=== PATIENT | male | born 1975 | race Caucasian/White ===

== ENCOUNTER → 2018-04-02 | Outpatient (CLI) | payer BC ==
--- NOTE | 2018-04-02 10:28 | Diagnostic Imaging Report ---
MRI of the right shoulder without contrast. History: Shoulder pain. Impingement. Decreased range of motion. Pain not responding to conservative management. Comparison: None Technique: Coronal PD FS, sagital PD FS, and axial PD and PD FS. Findings: Rotator cuff: There is rotator cuff tendinosis with midsubstance degeneration and mild articular sided fraying involving the anterior fibers of the supraspinatus and infraspinatus tendons at the humeral insertion site. This is best seen on coronal image 12 through 14. Additionally, there is subscapularis tendinosis. The teres minor tendon is intact. Osseous acromion complex: There is a type II acromion with mild lateral downsloping. There is moderate degenerative arthrosis at the acromioclavicular joint with undersurface spurring and mild narrowing of the supraspinatus tendon outlet best seen on sagittal image 16. Glenohumeral joint: There is mild degeneration and fraying of the labrum. The articular cartilage surfaces are intact. The humeral head is well-seated in the glenoid fossa. There is a small effusion and mild synovitis in the rotator interval and subcoracoid space. Biceps tendon: The biceps tendon is intact. Other findings: Negative for muscle denervation or osseous fracture. Impression: Rotator cuff tendinosis with midsubstance degeneration and mild articular sided fraying involving the anterior fibers of the supraspinatus and infraspinatus tendons at the humeral insertion site. Additionally, there is subscapularis tendinosis. Moderate degenerative arthrosis at the acromioclavicular joint with undersurface spurring and mild narrowing of the supraspinatus tendon outlet Signed by: Dr. Ravin Slater M.D. on 04/02/2018 10:25 AM
== END ==
LOC: MRI 09:08
PROVIDERS: ATTEND Specialist
DX: M75.41 Impingement syndrome of right shoulder (principal)

== ENCOUNTER → 2018-04-15 | Day surgery (SDC) | payer BC ==
[2018-04-14 09:39] LABS: ANION GAP 17.9 mmol/L (8-16); BLOOD UREA NITROGEN 12 mg/dL (7-26); BUN/CREATININE RATIO 14 (6-25); CALCIUM 9.5 mg/dL (8.4-10.2); CARBON DIOXIDE 20 mmol/L (22-29); CHLORIDE 101 mmol/L (98-107); CREATININE, SERUM 0.85 mg/dL (0.72-1.25); EST GLOMERULAR FILTRATION RATE > 60 ML/MIN (60-); GLUCOSE 374 mg/dL (74-118); POTASSIUM 3.9 mmol/L (3.5-5.1); SODIUM 135 mmol/L (136-145)
[~2018-04-15] MED LIST: CLINDAMYCIN 600MG / 50ML 50 ML IV ONE; EPINEPHRINE HCL 1:1000 1ML 1 MG/ML AMP ONE; FENTANYL CITRATE/PF 100MCG/2 ML INJ ONE; GLYCOPYRROLATE INJ 1MG/ 5 ML SYR ONE; HYDROMORPHONE 2MG/ML 2 MG/ML ML ONE; INSULIN REGULAR, HUMAN 100 UNIT/1 ML 3ML VIAL ONE; LABETALOL HCL 20 MG/4 ML SYRINGE IV ONE; LIDOCAINE 2%/ EPINEPHRINE 20ML MDV ONE; LIDOCAINE HCL 2% LOCAL INJ 5 ML SDV VIAL INJ ONE; LIPITOR20 MG PO; METFORMIN HCL500 MG PO; MIDAZOLAM HCL 2 MG/2 ML VIAL ONE; NEOSTIGMINE 5 MG/5ML SYR ONE; ONDANSETRON HCL INJ 2MG/ML 2ML 2 MG/ML VIAL ONE; PROPOFOL IV EMULSION 10 MG/ML 20 ML VIAL ONE; ROCURONIUM BROMIDE 10 MG/ML 5ML VIAL ONE; ROPIVACAINE 0.5% 5 MG/ML 30 ML SDV ONE; SEVOFLURANE INHAL SOLN 250 ML PEN BTL ONE
[2018-04-15 14:30] VITALS: BP 156/90
--- NOTE | 2018-04-15 19:42 | Operative Report ---
DATE OF PROCEDURE: 04/15/2018 SURGEON: Rush Smith MD GENERAL ADJUSTER: Balwinder Etienne PA-C PREOPERATIVE DIAGNOSIS: Right shoulder intractable impingement. POSTOPERATIVE DIAGNOSIS: Right shoulder rotator cuff tear. PROCEDURE: Right shoulder arthroscopy, subacromial decompression, and rotator cuff repair. INDICATIONS: The patient is a 43-year-old gentleman with a several-year history of right shoulder pain. He has been treated with anti-inflammatories, physical therapy, subacromial injections, and modification of activities. He states the pain is severe and compromises his quality of life. He would like to proceed with more definitive intervention. The risks and benefits of diagnostic arthroscopy with repairs as indicated has been explained. A lengthy recovery has been discussed. The added risks for perioperative complications due to his BMI over 43 has been explained. He states he understands and feels it is necessary to proceed. DESCRIPTION OF PROCEDURE: The patient was brought to the operating room and placed under general anesthetic. He received a regional block and prophylactic antibiotics in the holding area. He was carefully positioned in the beach chair position on the shoulder table. Throughout this case, some added time and personnel were necessary due to the patient's BMI of 43. A preoperative time out was performed. A standard posterior arthroscopy portal was established. The shoulder was insufflated with sterile saline. Body landmarks were difficult to distinguish, but we did manage to insufflate the shoulder joint without too much problem. An anterior working portal was established in the rotator interval after needle localization. There had been a release of the inferior capsule during prepping. There was an intra-articular hematoma, this was thoroughly cleared. The glenohumeral surfaces were well preserved. The biceps tendon appeared to be unremarkable. [place] of the tendon at the supraglenoid tubercle was probed and noted to be hooked stable. The anterior labrum was stable. There was a near full-thickness tear of the anterior supraspinatus. A spinal needle was placed from lateral to medial to localize the tear. A small amount of synovitis was electrocauterized. Some type 1 tearing of the labrum was debrided. The scope was then placed into the subacromial space. Extensive subacromial bursitis was encountered. A 5.5-mm electro-blade was used to perform a subacromial bursectomy. Once landmarks could be identified, a bony decompression was performed. The bursal surface of the rotator cuff was carefully inspected. The area that corresponded to the intra-articular tear was thin and friable. I elected to complete the tear and repair it. A pair of biting forceps were introduced into the joint. This was at the anterior greater tuberosity. The tear was completed. The greater tuberosity was decorticated. An Arthrex double-row construct was used to repair the tendon. A bioabsorbable suture anchor preloaded with FiberTape was placed at the articular margin. A Scorpion suture passer was used to pass this through healthy portions of the tendon in a diverging fashion. A secondary suture anchor was used to burry the stitch under tension at the superolateral humeral cortex. The tear was reprobed and noted to be under appropriate tension with good tendon bone apposition. The arthroscopic instruments were removed. The portal incisions were closed with nylon stitches. A sterile bandage and an UltraSling were applied. The patient was extubated and transported to the recovery room in stable condition. Estimated blood loss was less than 20 mL. All needle and sponge counts were correct. Rush Smith MD DR/LILO /[id number]
--- OUTSIDE RECORDS SUMMARY | 2018-04-16 10:14 | XMS REPORT ---
Author Author [facility] Address Unknown Phone Unavailable Care Team Providers Care Scheduling Administrator Name Role Phone DEVYN MURRAY Unavailable Unavailable Problems This patient has no known problems. Allergies, Adverse Reactions, Alerts This patient has no known allergies or adverse reactions. Medications This patient has no known medications. Results Test Description Test Time Test Comments Text Results Atomic Results Result Comments MRI SHOULDER RIGHT WO 2018-04-02 10:22:00 [facility] [address] [address] Patient Name: TERRI DIOP MR #: [id number] : 1975 Age/Sex: 43/M Req #: [id number] [facility] Physician: Ordered by: DEVYN MURRAY MD Report #: [id number] Location: MRI Room/Bed: Procedure: [id number] MRI/MRI SHOULDER RIGHT WO Exam Date: 04/02/18 Exam Time: 0935 REPORT STATUS: Signed MRI of the right shoulder without contrast. History: Shoulder pain. Impingement. Decreased range of motion. Pain not responding to conservative management. Comparison: None Technique: Coronal PD FS, sagital PD FS, and axial PD and PD FS. Findings: Rotator cuff: There is rotator cuff tendinosis with midsubstance degeneration and mild articular sided fraying involving the anterior fibers of the supraspinatus and infraspinatus tendons at the humeral insertion site. This is best seen on coronal image 12 through 14. Additionally, there is subscapularis tendinosis. The teres minor tendon is intact. Osseous acromion complex: There is a type II acromion with mild lateral downsloping. There is moderate degenerative arthrosis at the acromioclavicular joint with undersurface spurring and mild narrowing of the supraspinatus tendon outlet best seen on sagittal image 16. Glenohumeral joint: There is mild degeneration and fraying of the labrum. The articular cartilage surfaces are intact. The humeral head is well-seated in the glenoid fossa. There is a small effusion and mild synovitis in the rotator interval and subcoracoid space. Biceps tendon: The biceps tendon is intact. Other findings: Negative for muscle denervation or osseous fracture. Impression: Rotator cuff tendinosis with midsubstance degeneration and mild articular sided fraying involving the anterior fibers of the supraspinatus and infraspinatus tendons at the humeral insertion site. Additionally, there is subscapularis tendinosis. Moderate degenerative arthrosis at the acromioclavicular joint with undersurface spurring and mild narrowing of the supraspinatus tendon outlet Signed by: Dr. Ravin Slater M.D. on 04/02/2018 10:25 AM Dictated By: RAVIN SLATER MD, MD 1025 Transcribed By: KATIE on 04/02/18 1025 COPY TO: DEVYN MURRAY MD
== END | disposition home or self-care (01) ==
LOC: OR 08:04
PROVIDERS: ATTEND Specialist
DX: M75.101 Unspecified rotator cuff tear or rupture of right shoulder, not specified as traumatic (principal); K21.9 Gastro-esophageal reflux disease without esophagitis; I10 Essential (primary) hypertension; E11.9 Type 2 diabetes mellitus without complications; E78.00 Pure hypercholesterolemia, unspecified; E66.01 Morbid (severe) obesity due to excess calories; Z68.41 Body mass index [BMI] 40.0-44.9, adult; Z79.84 Long term (current) use of oral hypoglycemic drugs; Z88.5 Allergy status to narcotic agent; Z88.0 Allergy status to penicillin
CPT/HCPCS: 29826; 29827; 36415 ×2; 80048; 82948; 93005; C1713; J0171; J1170; J2001 ×2; J2250; J2405; J2704; J2795; J3490

== ENCOUNTER 2018-09-28 17:30 | Emergency (ER) | payer BC ==
[~2018-09-28] VITALS: Ht 177.8 cm; Wt 142.9 kg
[~2018-09-28 17:30] MED LIST changes: -CLINDAMYCIN 600MG / 50ML 50 ML IV ONE; -EPINEPHRINE HCL 1:1000 1ML 1 MG/ML AMP ONE; -FENTANYL CITRATE/PF 100MCG/2 ML INJ ONE; -GLYCOPYRROLATE INJ 1MG/ 5 ML SYR ONE; -HYDROMORPHONE 2MG/ML 2 MG/ML ML ONE; -INSULIN REGULAR, HUMAN 100 UNIT/1 ML 3ML VIAL ONE; -LABETALOL HCL 20 MG/4 ML SYRINGE IV ONE; -LIDOCAINE 2%/ EPINEPHRINE 20ML MDV ONE; -LIDOCAINE HCL 2% LOCAL INJ 5 ML SDV VIAL INJ ONE; -MIDAZOLAM HCL 2 MG/2 ML VIAL ONE; -NEOSTIGMINE 5 MG/5ML SYR ONE; -ONDANSETRON HCL INJ 2MG/ML 2ML 2 MG/ML VIAL ONE; -PROPOFOL IV EMULSION 10 MG/ML 20 ML VIAL ONE; -ROCURONIUM BROMIDE 10 MG/ML 5ML VIAL ONE; -ROPIVACAINE 0.5% 5 MG/ML 30 ML SDV ONE; -SEVOFLURANE INHAL SOLN 250 ML PEN BTL ONE
[2018-09-28] MEDS ORDERED: LIDOCAINE 1% W/EPINEPHRINE 20 ML VIAL INJ ONE (18:00)
[2018-09-28] MEDS ORDERED: LIDOCAINE 2%/ EPINEPHRINE 20ML MDV ONE (18:04)
--- NOTE | 2018-09-28 18:19 | NUR ---
Ariel ROMERO in room to drain abscess. small amount of puss drainage from site. cleaned and dressed with 4x4 and microfoam tape
== END 2018-09-28 18:32 | disposition home or self-care (01) ==
LOC: ER 17:30
DX: L02.11 Cutaneous abscess of neck (principal); I10 Essential (primary) hypertension
CPT/HCPCS: 10061; 99283; J2001

== ENCOUNTER 2021-01-09 18:48 | Emergency (ER) | payer BC ==
[~2021-01-09] VITALS: Ht 177.8 cm; Wt 142.9 kg
[2021-01-09] MEDS ORDERED: ONDANSETRON HCL INJ 2MG/ML 2ML 2 MG/ML VIAL IV STA (18:55)
[2021-01-09] MEDS ORDERED: SODIUM CHLORIDE 0.9% 1000ML 1,000 ML IV STA (18:55)
[2021-01-09] MEDS ORDERED: KETOROLAC TROMETHAMINE 30 MG/ML VIAL IV STA (18:55)
[2021-01-09 19:11] LABS: BASOPHILS % 0.3 % (0.0-1.0); EOSINOPHILS # (AUTO) 0.1 (0.0-0.4); EOSINOPHILS % 0.7 % (0.0-6.0); HEMATOCRIT 39.7 % (38.2-49.6); HEMOGLOBIN 13.3 g/dL (14.0-18.0); LYMPHOCYTES # (AUTO) 1.1 (1.0-3.2); LYMPHOCYTES % 12.1 % (18.0-39.1); MEAN CORPUSCULAR HEMOGLOBIN 27.9 pg (28-32); MEAN CORPUSCULAR HGB CONC 33.5 g/dL (31-35); MEAN CORPUSCULAR VOLUME 83.4 fL (81-99); MONOCYTES # (AUTO) 0.7 (0.2-0.8); MONOCYTES % 7.6 % (4.4-11.3); NEUTROPHILS # (AUTO) 7.3 (2.1-6.9); PLATELET COUNT 212 x10e3/uL (140-360); RED BLOOD COUNT 4.76 x10e6/uL (4.3-5.7); RED CELL DISTRIBUTION WIDTH 12.4 % (11.7-14.4)
[2021-01-09 19:15] LABS: CLARITY,URINE CLEAR (CLEAR); COLOR,URINE YELLOW (YELLOW)
[2021-01-09 19:16] LABS: KETONES,URINE 1+ (NEGATIVE); LEUKOCYTE ESTERASE ,URINE NEGATIVE (NEGATIVE); NITRITE,URINE NEGATIVE (NEGATIVE); PROTEIN,URINE DIPSTICK TRACE (NEGATIVE); URINE UROBILINOGEN 0.2 mg/dL (0.2 - 1)
[2021-01-09 19:21] LABS: AMORPHOUS SEDIMENT,URINE MODERATE (FEW); BACTERIA,URINE FEW /HPF
[2021-01-09 19:31] LABS: ALBUMIN 3.9 g/dL (3.5-5.0); ALBUMIN/GLOBULIN RATIO 1.5 (0.8-2.0); CALCIUM 8.5 mg/dL (8.4-10.2); CREATININE, SERUM 1.36 mg/dL (0.72-1.25)
[2021-01-09 20:04] VITALS: BP 160/94
[2021-01-09] MEDS ORDERED: ACETAMINOPHEN-1 EAC4 PO (20:10)
[2021-01-09] MEDS ORDERED: ONDANSETRON ODT4 MG PO (20:10)
[2021-01-09] MEDS ORDERED: KETOROLAC TROME10 MG PO (20:10)
== END 2021-01-09 20:29 | disposition home or self-care (01) ==
LOC: ER 19:00
DX: M54.50 Low back pain, unspecified (principal); N13.2 Hydronephrosis with renal and ureteral calculous obstruction; N28.89 Other specified disorders of kidney and ureter; R16.1 Splenomegaly, not elsewhere classified; Z98.84 Bariatric surgery status
CPT/HCPCS: 36415; 74176; 80053; 81001; 85025; 99284; J1885; J2405; J7030

== ENCOUNTER → 2021-01-30 | Outpatient (CLI) | payer BC ==
[~2021-01-30] MED LIST changes: +ACETAMINOPHEN-1 EAC4 PO; +IOPAMIDOL 370 MG/ML 200 ML INFUS..BTL INJ ONE; +KETOROLAC TROME10 MG PO; +ONDANSETRON ODT4 MG PO; +SODIUM CHLORIDE 0.9% 50ML 50 ML ONE
[2021-01-30 16:45] LABS: CREATININE, SERUM 1.13 mg/dL (0.72-1.25)
== END ==
LOC: CT 15:43
PROVIDERS: ATTEND Urology
DX: N28.89 Other specified disorders of kidney and ureter (principal)
CPT/HCPCS: 36415; 74178; 82565; 84520; Q9967

== ENCOUNTER → 2021-11-29 | Outpatient (CLI) | payer BC ==
[~2021-11-29] MED LIST changes: +IOPAMIDOL 370 MG/ML 100 ML INFUS..BTL INJ ONE; -IOPAMIDOL 370 MG/ML 200 ML INFUS..BTL INJ ONE; -SODIUM CHLORIDE 0.9% 50ML 50 ML ONE
[2021-11-29 08:47] LABS: CREATININE, SERUM 1.28 mg/dL (0.72-1.25)
== END ==
LOC: CT 07:49
PROVIDERS: ATTEND Urology
DX: C64.9 Malignant neoplasm of unspecified kidney, except renal pelvis (principal)
CPT/HCPCS: 36415; 71046; 74160; 82565; 84520; Q9967

== ENCOUNTER 2023-12-28 21:24 | Inpatient (IN) | payer BC ==
[~2023-12-28] VITALS: Ht 177.8 cm; Wt 108.9 kg
[~2023-12-28 21:24] MED LIST changes: -IOPAMIDOL 370 MG/ML 100 ML INFUS..BTL INJ ONE
[2023-12-28] MEDS: ONDANSETRON HCL INJ 2MG/ML 2ML 2 MG/ML VIAL IV STA (23:10)
[2023-12-28] MEDS: SODIUM CHLORIDE 0.9% 1000ML 1,000 ML IV ONE (23:11)
[2023-12-28] MEDS: KETOROLAC TROMETHAMINE 30 MG/ML VIAL IV STA (23:11)
[2023-12-28 23:23] LABS: BASOPHILS # (AUTO) 0.1 (0.0-0.1); BASOPHILS % 0.8 % (0.0-1.0); EOSINOPHILS # (AUTO) 0.2 (0.0-0.4); EOSINOPHILS % 2.6 % (0.0-6.0); HEMATOCRIT 29.8 % (38.2-49.6); HEMOGLOBIN 8.1 g/dL (14.0-18.0); LYMPHOCYTES # (AUTO) 1.6 (1.0-3.2); LYMPHOCYTES % 20.7 % (18.0-39.1); MEAN CORPUSCULAR HEMOGLOBIN 18.5 pg (28-32); MEAN CORPUSCULAR HGB CONC 27.2 g/dL (31-35); MONOCYTES # (AUTO) 0.8 (0.2-0.8); MONOCYTES % 10.5 % (4.4-11.3); NEUTROPHILS # (AUTO) 5.1 (2.1-6.9); NEUTROPHILS % 65.3 % (38.7-80.0); PLATELET COUNT 345 x10e3/uL (140-360); RED BLOOD COUNT 4.38 x10e6/uL (4.3-5.7); RED CELL DISTRIBUTION WIDTH 19.2 % (11.7-14.4); WHITE BLOOD COUNT 7.73 x10e3/uL (4.8-10.8)
[2023-12-28 23:29] LABS: CLARITY,URINE CLOUDY (CLEAR); COLOR,URINE YELLOW (YELLOW); LEUKOCYTE ESTERASE ,URINE NEGATIVE (NEGATIVE); NITRITE,URINE NEGATIVE (NEGATIVE); PH,URINE 5.5 (5 - 7)
[2023-12-28 23:30] LABS: BILIRUBIN,URINE NEGATIVE (NEGATIVE); GLUCOSE, URINE NEGATIVE (NEGATIVE); KETONES,URINE NEGATIVE (NEGATIVE); PROTEIN,URINE DIPSTICK 1+ (NEGATIVE); URINE UROBILINOGEN 1 mg/dL (0.2 - 1)
[2023-12-28 23:38] LABS: ALBUMIN/GLOBULIN RATIO 1.4 (0.8-2.0); ANION GAP 13.8 mmol/L (8-16); BILIRUBIN,TOTAL 0.7 mg/dL (0.2-1.2); CALCIUM 8.9 mg/dL (8.4-10.2); CREATININE, SERUM 1.41 mg/dL (0.72-1.25); POTASSIUM 4.8 mmol/L (3.5-5.1); TOTAL PROTEIN 6.8 g/dL (6.5-8.1)
[2023-12-28 23:48] LABS: BACTERIA,URINE FEW /HPF; EPITHELIAL CELLS,URINE FEW /LPF; MUCUS,URINE MANY (RARE)
[2023-12-29] MEDS ORDERED: IOPAMIDOL 370 MG/ML 100 ML INFUS..BTL INJ ONE (00:04)
[2023-12-29] MEDS ORDERED: ONDANSETRON HCL INJ 2MG/ML 2ML 2 MG/ML VIAL IV PRN (02:15)
[2023-12-29] MEDS ORDERED: SODIUM CHLORIDE FLUSH 10 ML SYR INJ PRN (02:15)
[2023-12-29] MEDS ORDERED: Morphine 2mg Syringe 2 MG/ML SYR IV PRN ×2 (02:15→14:15)
[2023-12-29 05:57] VITALS: PULSE 61; RESP 16; TEMP 97.8
[2023-12-29] MEDS: DICYCLOMINE HCL 20 MG/2 ML VIAL IM ONE (05:59)
[2023-12-29 10:00] VITALS: BP 160/82; PULSE 60; RESP 17; TEMP 98.2; O2SAT 100
[2023-12-29] MEDS ORDERED: LISINOPRIL10 MG PO (10:11)
[2023-12-29] MEDS ORDERED: VALACYCLOVIR500 MG PO (10:12)
[2023-12-29 10:17] VITALS: BP 160/82; PULSE 60; RESP 17; TEMP 98.2; O2SAT 100
[2023-12-29] MEDS: SODIUM CHLORIDE 0.9% 250ML 250 ML ONE (10:27)
[2023-12-29] MEDS: IRON SUCROSE 100 MG in SODIUM CHLORIDE 0.9% 100 ML IV SCH (12:11)
[2023-12-29] MEDS: HYDRALAZINE HCL 20 MG/ML VIAL IV PRN (12:11)
[2023-12-29 13:02] LABS: FERRITIN 4.2 ng/mL (21.81-274.66)
[2023-12-29] MEDS: SODIUM CHLORIDE 0.9% 1000ML 1,000 ML IV SCH (14:50)
[2023-12-29] MEDS: ACETAMINOPHEN 325 MG TAB PO PRN (14:50)
[2023-12-29 16:26] VITALS: BP 145/86; PULSE 87; RESP 18; TEMP 98.4; O2SAT 100
[2023-12-29] MEDS: TRAMADOL HCL 50 MG TAB PO PRN (18:21)
[2023-12-29 18:35] LABS: HEMATOCRIT 27.4 % (38.2-49.6); HEMOGLOBIN 7.5 g/dL (14.0-18.0)
[2023-12-29 20:00] VITALS: BP 155/86; PULSE 62; RESP 18; TEMP 98.4; O2SAT 100
[2023-12-29 20:45] VITALS: BP 155/86; PULSE 62; RESP 18; TEMP 98.4; O2SAT 100
[2023-12-30] VITALS (9 sets, daily range): BP systolic 130–184; BP diastolic 74–84; PULSE 56–76; RESP 17–21; TEMP 97.8–99; O2SAT 99–100
[2023-12-30 05:35] LABS: BASOPHILS # (AUTO) 0.1 (0.0-0.1); BASOPHILS % 1.2 % (0.0-1.0); EOSINOPHILS # (AUTO) 0.3 (0.0-0.4); EOSINOPHILS % 6.1 % (0.0-6.0); HEMATOCRIT 27.2 % (38.2-49.6); LYMPHOCYTES # (AUTO) 1.3 (1.0-3.2); LYMPHOCYTES % 26.2 % (18.0-39.1); MEAN CORPUSCULAR HEMOGLOBIN 18.7 pg (28-32); MEAN CORPUSCULAR HGB CONC 27.2 g/dL (31-35); MEAN CORPUSCULAR VOLUME 68.7 fL (81-99); MONOCYTES # (AUTO) 0.5 (0.2-0.8); MONOCYTES % 9.7 % (4.4-11.3); NEUTROPHILS # (AUTO) 2.9 (2.1-6.9); NEUTROPHILS % 56.6 % (38.7-80.0); PLATELET COUNT 274 x10e3/uL (140-360); RED BLOOD COUNT 3.96 x10e6/uL (4.3-5.7); RED CELL DISTRIBUTION WIDTH 18.8 % (11.7-14.4); WHITE BLOOD COUNT 5.07 x10e3/uL (4.8-10.8)
[2023-12-30 05:45] LABS: HEMOGLOBIN 7.4 g/dL (14.0-18.0)
[2023-12-30 05:59] LABS: ALBUMIN 3.1 g/dL (3.5-5.0); ALBUMIN/GLOBULIN RATIO 1.5 (0.8-2.0); ANION GAP 11.2 mmol/L (8-16); BILIRUBIN,TOTAL 1.2 mg/dL (0.2-1.2); CALCIUM 8.3 mg/dL (8.4-10.2); CREATININE, SERUM 1.07 mg/dL (0.72-1.25); POTASSIUM 4.2 mmol/L (3.5-5.1); TOTAL PROTEIN 5.2 g/dL (6.5-8.1)
[2023-12-30 09:46] LABS: ELLIPTOCYTE, RBC SLIGHT; HYPOCHROMASIA MODERATE; MICROCYTOSIS MODERATE; OVALOCYTES FEW; PLATELET ESTIMATE ADEQUATE; PLATELET MORPHOLOGY COMMENT NORMAL; RBC MORPHOLOGY COMMENT ABNORMAL
[2023-12-30 10:16] LABS: FOLATE 12.9 ng/mL (7.0-15.4)
[2023-12-30 14:05] LABS: HEMATOCRIT 27.2 % (38.2-49.6); HEMOGLOBIN 7.3 g/dL (14.0-18.0)
[2023-12-30] MEDS ORDERED: METOPROLOL TARTRATE INJ 1 MG/ML VIAL ONE (17:57)
[2023-12-31] VITALS: BP 167/72; PULSE 72; RESP 18; TEMP 99.1; O2SAT 100
[2023-12-31 04:00] VITALS: BP 140/79; PULSE 62; RESP 18; TEMP 98.3; O2SAT 100
[2023-12-31 05:17] LABS: BASOPHILS # (AUTO) 0.1 (0.0-0.1); BASOPHILS % 0.8 % (0.0-1.0); EOSINOPHILS # (AUTO) 0.3 (0.0-0.4); HEMATOCRIT 26.7 % (38.2-49.6); HEMOGLOBIN 7.5 g/dL (14.0-18.0); LYMPHOCYTES # (AUTO) 1.3 (1.0-3.2); LYMPHOCYTES % 19.4 % (18.0-39.1); MEAN CORPUSCULAR HEMOGLOBIN 18.4 pg (28-32); MEAN CORPUSCULAR HGB CONC 28.1 g/dL (31-35); MONOCYTES # (AUTO) 0.6 (0.2-0.8); NEUTROPHILS # (AUTO) 4.2 (2.1-6.9); NEUTROPHILS % 65.3 % (38.7-80.0); PLATELET COUNT 259 x10e3/uL (140-360); RED BLOOD COUNT 4.08 x10e6/uL (4.3-5.7); WHITE BLOOD COUNT 6.43 x10e3/uL (4.8-10.8)
[2023-12-31 05:27] LABS: MEAN CORPUSCULAR VOLUME 65.4 fL (81-99)
[2023-12-31 07:53] VITALS: BP 156/77; PULSE 58; RESP 20; TEMP 98.4; O2SAT 100
[2023-12-31] MEDS: SODIUM CHLORIDE 0.9% 1000ML 1,000 ML IV SCH (09:12)
[2023-12-31 09:24] VITALS: BP 156/77; PULSE 58; RESP 20; TEMP 98.4; O2SAT 100
[2023-12-31] MEDS ORDERED: PROTONIX20 MG PO (10:48)
[2023-12-31 11:18] VITALS: BP 155/82; PULSE 70; RESP 19; TEMP 98.6; O2SAT 100
== END 2023-12-31 13:18 | disposition home or self-care (01) | DRG 381 ==
LOC: ER 21:35 → ERHOLD 12-29 02:08 → MED/SURG 12-29 10:00 → OBSVTOIN 12-30 11:10
PROVIDERS: ADMIT Internal Medicine; ATTEND Internal Medicine
PROC: 0DB68ZX Excision of Stomach, Via Natural or Artificial Opening Endoscopic, Diagnostic (ICD-10-PCS; principal; 2023-12-30 17:36)
DX: K28.9 Gastrojejunal ulcer, unspecified as acute or chronic, without hemorrhage or perforation (principal); K91.2 Postsurgical malabsorption, not elsewhere classified; N17.9 Acute kidney failure, unspecified; D50.9 Iron deficiency anemia, unspecified; D63.8 Anemia in other chronic diseases classified elsewhere; E66.01 Morbid (severe) obesity due to excess calories; Z68.34 Body mass index [BMI] 34.0-34.9, adult; I10 Essential (primary) hypertension; E11.9 Type 2 diabetes mellitus without complications; Z86.0100 Personal history of colon polyps, unspecified; Z98.84 Bariatric surgery status; Z90.49 Acquired absence of other specified parts of digestive tract; Z71.81 Spiritual or religious counseling; Z79.899 Other long term (current) drug therapy; Y83.2 Surgical operation with anastomosis, bypass or graft as the cause of abnormal reaction of the patient, or of later complication, without mention of misadventure at the time of the procedure
CPT/HCPCS: 36415; 43239; 74177; 80053; 81001; 82607; 82728; 82746; 83540; 83690; 84466; 85014; 85018; 85025; 85045; 86850; 86900; 88305; 88342; 99285; G0378; J0360; J1756; J1885; J2405; J2470; J7030; J7050; Q9967